=== PATIENT | male | born 1965 | race Two or more races ===

== ENCOUNTER 2022-07-24 11:17 | Day surgery (SDC) | payer BC ==
[2022-07-21 12:52] VITALS: BMI 26.5
[2022-07-24] MEDS ORDERED: MIDAZOLAM HCL 2 MG/2 ML SINGLE DOSE VIAL ONE (12:29)
[2022-07-24] MEDS ORDERED: ONDANSETRON 4 MG/2 ML VIAL ONE ×2 (13:26→16:10)
[2022-07-24] MEDS ORDERED: ceFAZolin SODIUM 1 GM VIAL ONE (13:26)
[2022-07-24] MEDS ORDERED: DEXAMETHASONE SOD PHOSPHATE 4 MG/1 ML VIAL ONE (13:26)
[2022-07-24] MEDS ORDERED: oxyCODONE HCL 5 MG TABLET PO PRN (15:18)
[2022-07-24] MEDS ORDERED: ONDANSETRON 4 MG/2 ML VIAL IVPUSH PRN (15:18)
[2022-07-24] MEDS ORDERED: FENTANYL CITRATE/PF 50 MCG/ML VIAL ONE ×3 (15:24→16:08)
[2022-07-24] MEDS ORDERED: LACTATED RINGERS SOLUTION 1,000 ML IV SCH (15:30)
[2022-07-24 15:56] VITALS: TEMP 97.6
[2022-07-24] MEDS ORDERED: oxyCODONE HCL 5 MG TABLET ONE (16:00)
[2022-07-24] MEDS ORDERED: KETOROLAC TROMETHAMINE 30 MG/1 ML VIAL ONE (17:23)
[2022-07-24] MEDS ORDERED: KETOROLAC TROMETHAMINE 30 MG/1 ML VIAL IVPUSH ONE (17:29)
[2022-07-24 18:01] VITALS: PULSE 79; RESP 20
[2022-07-24 18:08] VITALS: BP 158/88
== END 2022-07-24 18:45 | disposition home or self-care (01) ==
LOC: FASU 11:17
PROVIDERS: ATTEND Orthopaedic Surgery Sports Medicine
PROC: 0XQB0ZZ Repair Right Elbow Region, Open Approach (ICD-10-PCS; principal; 2022-07-24 13:30)
DX: S46.311A Strain of muscle, fascia and tendon of triceps, right arm, initial encounter (principal); X58.XXXA Exposure to other specified factors, initial encounter; Y93.9 Activity, unspecified; Y92.9 Unspecified place or not applicable
CPT/HCPCS: 94760; C1713